=== PATIENT | female | born 1995 | race Caucasian/White ===

== ENCOUNTER 2018-08-10 12:59 | Emergency (ER) | payer OTHER ==
[~2018-08-10] VITALS: Ht 162.6 cm; Wt 42.2 kg
--- NOTE | 2018-08-10 13:17 | NUR ---
PT WALKED INTO EMERGENCY ROOM FOR C/C OF PSYCH EVAL PT ACCOMPANIED BY FRIEND PT NOTED TO HAVE BANDAGE OVER RIGHT SIDE OF FACE AND RED FONG ON LEFT SIDE OF FACE WALKS WITH STEADY GAIT
[2018-08-10 13:39] LABS: BASOPHILS # (AUTO) 0.1 /CMM (0.0-0.2); BASOPHILS % (AUTO) 0.9 % (0.0-2.0); EOSINOPHILS % (AUTO) 3.5 % (0.0-6.0); HEMATOCRIT 42 % (33-45); HEMOGLOBIN 14.2 g/dL (11.5-14.8); LYMPHOCYTES # (AUTO) 1.2 /CMM (0.8-4.8); LYMPHOCYTES % (AUTO) 16.5 % (20.0-44.0); MEAN CORPUSCULAR HGB CONC 34 g/dl (31.0-36.0); MEAN CORPUSCULAR VOLUME 90 fL (82-100); MONOCYTES # (AUTO) 0.5 /CMM (0.1-1.30); MONOCYTES % (AUTO) 6.4 % (2.0-12.0); NEUTROPHILS # (AUTO) 5.4 /CMM (1.8-8.9); NEUTROPHILS % (AUTO) 72.7 % (43.0-81.0); PLATELET COUNT (AUTO) 287 /CMM (150-450); WHITE BLOOD COUNT (AUTO) 7.4 K/uL (4.3-11.0)
[2018-08-10 13:42] LABS: APPEARANCE,URINE Slightly Cloudy (CLEAR); BILIRUBIN,URINE MODERATE (NEGATIVE); BLOOD, URINE Moderate Ery/uL (NEGATIVE); KETONES,URINE 15 (NEGATIVE); LEUKOCYTE ESTERASE ,URINE Negative (NEGATIVE); NITRITE, URINE Negative (NEGATIVE); PH,URINE 6.5 (5.0-8.0); PROTEIN,URINE 30 mg/dl (NEGATIVE); UGLUCOSE 100 MG/DL mg/dL (NEGATIVE)
[2018-08-10 13:43] LABS: COLOR,URINE Dark Yellow (YELLOW)
[2018-08-10 13:46] LABS: CALCIUM, SERUM 8.6 mg/dL (8.5-10.1); CARBON DIOXIDE 28 mmol/L (21-32); CHLORIDE 108 mmol/L (98-107); GLUCOSE 92 mg/dL (74-106); POTASSIUM 3.4 mmol/L (3.5-5.1); SODIUM SERUM 143 mmol/L (136-145); UREA NITROGEN, BLOOD 10 mg/dL (7-18)
[2018-08-10 13:50] LABS: BACTERIA,URINE Few /HPF (None Seen); MUCUS,URINE Few /LPF (None Seen); SQUAMOUS EPITHELIAL CELL,UR Moderate /HPF (None Seen)
[2018-08-10 13:52] LABS: ACETAMINOPHEN 0 ug/ml (10-30); ALANINE AMINOTRANSFERASE 79 U/L (12-78); ALBUMIN 3.5 g/dL (3.4-5.0); ALCOHOL, BLOOD < 3 mg/dL (0-0); ALKALINE PHOSPHATASE 62 U/L (46-116); ASPARTATE AMINOTRANSFERASE 40 U/L (15-37); BILIRUBIN,DIRECT 0.1 mg/dL (0.0-0.2); BILIRUBIN,TOTAL 0.3 mg/dL (0.2-1.0); SALICYLATE 9.7 mg/dL (2.8-20.0); TOTAL PROTEIN, SERUM 7.2 g/dL (6.4-8.2)
[2018-08-10] MEDS ORDERED: CEPHALEXIN MONOHYDRATE 500 MG CAPSULE PO ONE ×2 (14:51→15:00)
[2018-08-10] MEDS ORDERED: OLANZAPINE 5 MG TABLET ONE (14:52)
--- NOTE | 2018-08-10 14:54 | NUR ---
Called PRINCIPAL BIOSTATISTICIAN Pradeep Guadarrama for psych eval and said he would be here within an hour.
--- NOTE | 2018-08-10 14:58 | NUR ---
PT MEDICALLY CLEARED CALLING PET TEAM
[2018-08-10] MEDS ORDERED: OLANZAPINE 5 MG/TAB.RAPDIS PO ONE (15:00)
--- NOTE | 2018-08-10 17:51 | NUR ---
PT EVALUATED BY PET TEAM ON VOLUNTARY HOLD TO SO [facility] CALLED NO BEDS
--- NOTE | 2018-08-10 18:05 | NUR ---
Called -[facility] intake and spoke to Юлия and was told that She is going to follow up on the [place] facility to see if there is any update. Gave call back number.
--- NOTE | 2018-08-10 19:03 | NUR ---
Received a call from [facility] Breaux and spoke to Юлия at intake and was told that due to shift change, we wouldnt be receiving a bed assignment until 2000
--- NOTE | 2018-08-10 20:36 | NUR ---
Received a call from Юлия at [facility] intake and was informed that this patient has been accepted to [facility] under Dr. Alvarado. Number for report is [phone]. Ask for either Charge Nurse Joni or Arabella.
--- NOTE | 2018-08-10 20:44 | NUR ---
Called [facility] for [facility] transport. ETA of [id number] was given. Trip# [id number]
--- NOTE | 2018-08-10 23:46 | NUR ---
REPORT GIVEN TO KAVON CHRISTIAN AT [facility].
--- NOTE | 2018-08-10 23:55 | NUR ---
PT. PICKED UP BY AMBULANCE TO [facility] IN STABLE CONDITION. ALL NEEDS MET.
[2018-08-11] VITALS: BP 108/67
== END 2018-08-10 23:58 ==
LOC: ER 13:04
DX: R45.851 Suicidal ideations (principal); F42.4 Excoriation (skin-picking) disorder; F19.10 Other psychoactive substance abuse, uncomplicated; F17.200 Nicotine dependence, unspecified, uncomplicated
CPT/HCPCS: 36415; 80048; 80076; 80305; 80307; 80329; 81001; 84702; 85025; 99285; A4606; G0480; Z7610; 81000-TC